=== PATIENT | male | born 1995 | race Caucasian/White ===

== ENCOUNTER 2019-06-08 02:21 | Emergency (ER) | payer OTHER, SELFPAY ==
[2019-06-08 02:23] VITALS: BP 142/78; PULSE 68; RESP 16; TEMP 37; O2SAT 98; BMI 25.2
--- NOTE | 2019-06-08 03:35 | ED.DCSUM_ITS ---
History of Present Illness Chief Complaint: Diarrhea Informant: Patient - Abdominal Pain/Flank Pain Onset: Days - 4 Context: Sudden Onset - The night after [place] non[place]bottled water in a [place] in [facility] Timing: Intermittent Quality: Cramping Location: Diffuse Current Severity: Mild Maximum Severity: Moderate Worsened by: Food Relieved by: Nothing - Nausea/Vomiting/Emesis GI Symptom: Nausea. Negative for: Vomiting - Diarrhea/Melena/Hematochezia GI Symptom: Diarrhea. Negative for: Melena, Hematochezia Onset: Days - 4 Severity: Severe - 20+ bouts per day, estimated Associated Symptoms: Negative for: Dysuria, Frequency, Hematuria, Urgency Narrative: Patient was on a personal trip to [facility], see above. His diarrhea started after he [place]. He denies having any hematochezia. At one point he was feeling subjective fevers and chills and had severe body aches all over. He does think he sustained a couple of mosquito bites as well. No tick bites. Denies having any rashes. The first he was having trouble staying hydrated but now he thinks he has been doing pretty good job, he has been urinating normally. It was dark and strong but not today. Past Medical History - Allergies and Home Meds Allergies/Adverse Reactions: Allergies prednisone Adverse Reaction (Verified 06/08/19 02:30) Other Primary Care Physician: Josiah Gomes [Primary Care Provider] - Smoking Status: Former smoker Drugs: None Review of Systems General: Reports: Chills, Fever, Malaise. Denies: Sweats Eyes: Denies: Visual changes - bilaterally, Diplopia ENT: Denies: Rhinorrhea, Sore throat Cardiovascular: Denies: Chest pain, Palpitations Respiratory: Denies: Dyspnea, Cough, Dyspnea on exertion Gastrointestinal: Reports: Abdominal pain, Nausea, Diarrhea. Denies: Vomiting, Melena, Hematochezia Genitourinary: Denies: Dysuria, Hematuria, Frequency Musculoskeletal: Reports: Myalgias, Arthralgias. Denies: Neck pain, Back pain, Extremity Pain Skin: Denies: Rash, Wounds Neurological: Denies: Headache, Weakness, Numbness Physical Exam Vital Signs/Narrative: Vital Signs Temp Pulse Resp BP Pulse Ox 06/08/19 02:23 98.6 F 68 16 142/78 H 98 Inital Vital Signs reviewed: Yes General: Well nourished, Well developed, No Acute Distress - Well-appearing, NAD Head: Normocephalic, Atraumatic Eyes: Perrl, EOMI ENT: Moist mucous membranes, No rhinorrhea Neck: Supple, Nontender Cardiovascular: Regular rate, Regular rhythm, No murmurs Respiratory: No distress, CTA bilaterally, Chest nontender Abdomen: Soft, Nontender, Nondistended, Normal bowel sounds Back: Nontender, Normal Inspection Extremities: Nontender, No edema, - - No erythematous or swollen joints. Negative for: Calf Tenderness Skin: Normal color, No rash, No Trauma Neurological: Alert, Oriented x3, Cranial nerves II-XII grossly intact, Normal Strength, Normal Sensation, Normal Gait Psychological: Normal affect, Normal Mood Diagnostic/Tx/Re-eval Laboratory Tests 06/08/19 Range/Units 03:49 Sodium 140 (136-145) mmol/L Potassium 3.7 (3.5-5.1) mmol/L Chloride 103 (98-107) mmol/L Carbon Dioxide 30.0 (21.0-32.0) mmol/L Anion Gap 7 (5-15) BUN 9 (7-18) mg/dL Creatinine 0.95 (0.70-1.30) mg/dL Estim Creat Clear Calc 117.83 ml/min Est GFR (MDRD) Af Amer 124 (>60) mL/min Est GFR (MDRD) Non-Af 102 (>60) mL/min BUN/Creatinine Ratio 9.5 L (10-20) RATIO Glucose 94 (74-106) mg/dL Calcium 8.5 (8.5-10.1) mg/dL - Medical Decision Making Patient urinated and it is transparent yellow and looks fairly dilute. He does not appear dehydrated and this is consistent with that. I sent off some electrolytes, they are all within normal limits. I suspect he has traveler's diarrhea, however Giardia is also in the realm of possibility. We waited until he was able to provide enough stool to be tested, and he is being treated empirically. Encouraged to follow-up, as the enteric bacterial panel and Giardia test will not return this morning. Patient was initially given Cipro, but according to relatively new CDC recommendations within the last several years, since there is a high resistance of E. coli especially in [place], which is where the patient was, other antibiotics are recommended for moderate traveler's diarrhea, such as azithromycin. In one area, they recommend a single dose of 1 g which was given here in the ER, and he was prescribed loperamide instead of antibiotics. If he turns out to have Campylobacter, then 500 mg daily for 3 days is recommended and he may need to have more prescribed. ED Disposition - Plan for ED Patient: Disposition: Home or Assisted Living Diagnosis: Travelers' diarrhea Instructions: TRAVELER'S DIARRHEA (4y-Adult) Prescriptions: Loperamide [Imodium] 2 mg PO Q4H PRN PRN #15 cap PRN Reason: Diarrhea Prescription Printed Referrals: Josiah Gomes [Primary Care Provider] - 3-5 Days
[2019-06-08] MEDS: Dicyclomine 10 MG Capsule 20 MG PO (03:44)
[2019-06-08] MEDS: Ciprofloxacin 500 MG Tablet PO (03:44)
[2019-06-08 04:07] LABS: Anion Gap 7 (5-15); BUN 9 mg/dL (7-18); BUN/Creat Ratio 9.5 RATIO (10-20); Calcium,Total 8.5 mg/dL (8.5-10.1); Chloride 103 mmol/L (98-107); Creatinine, Serum 0.95 mg/dL (0.70-1.30); EST Glomerular Filtration Rate 102 mL/min (>60); Est Glom Filt Rate - Afr Amer 124 mL/min (>60); Estimated Creatinine Clearance 117.83 ml/min; Glucose 94 mg/dL (74-106); Potassium 3.7 mmol/L (3.5-5.1); Sodium Level 140 mmol/L (136-145)
[2019-06-08 04:21] VITALS: BP 138/74; PULSE 69; RESP 16; O2SAT 98
[2019-06-08] MEDS: Azithromycin 250 MG Tablet 1000 MG PO (06:02)
[2019-06-08 06:06] VITALS: BP 133/73; PULSE 70; RESP 16; O2SAT 98
--- NOTE | 2019-06-08 15:31 | ED.RN ---
DR. OBREGON MADE AWARE OF PATIENT'S STOOL SAMPLE, POSITIVE FOR CAMPYLOBACTER. PRESCRIPTION CALLED TO [facility] FOR ZITHROMAX 500 MG PO DAILY X3 DAYS WITH NO REFILLS PER DR. OBREGON'S ORDER. CONTACT MADE WITH PATIENT AND HE IS AWARE OF PLAN.
[2019-06-11 17:21] LABS: Giardia Lamblia, Stool EIA Negative (Negative)
== END 2019-06-08 06:07 | disposition home or self-care (01) ==
PROVIDERS: Emergency Provider Emergency Medicine; Family Provider Family Medicine; PCP Family Medicine
DX: R19.7 Diarrhea, unspecified (principal); R10.9 Unspecified abdominal pain; Z87.891 Personal history of nicotine dependence
CPT/HCPCS: 80048; 87329; 87506; 99283